=== PATIENT | female | born 1965 | race American Indian/Alaskan Native ===

== ENCOUNTER 2017-01-15 20:56 | Emergency (ER) | payer OTHER ==
[2017-01-15 21:03] VITALS: BP 113/67
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
[2017-01-15] MEDS ORDERED: TORADOL IM ONE (23:50)
== END 2017-01-16 00:30 | disposition home or self-care (01) ==
LOC: ED 20:56
DX: M79.1 Myalgia (principal); J45.909 Unspecified asthma, uncomplicated; V49.49XA Driver injured in collision with other motor vehicles in traffic accident, initial encounter; Y93.9 Activity, unspecified; Y92.9 Unspecified place or not applicable; Y99.9 Unspecified external cause status
CPT/HCPCS: 96372; 99282; J1885